=== PATIENT | female | born 1985 | race Caucasian/White ===

== ENCOUNTER 2020-10-23 01:33 | Emergency (ER) | payer OTHER ==
[~2020-10-23] VITALS: Ht 162.6 cm; Wt 72.6 kg
[2020-10-23 01:37] VITALS: BP 102/68
[2020-10-23] MEDS ORDERED: CIPR2.5D14 RIGHTEYE (02:12)
[2020-10-23] MEDS ORDERED: CIPROFLOXACIN HCL 0.3% 5 ML BOTTLE RIGHTEYE SCH (02:30)
== END 2020-10-23 03:35 | disposition home or self-care (01) ==
LOC: ER 01:33
DX: S05.01XA Injury of conjunctiva and corneal abrasion without foreign body, right eye, initial encounter (principal); H11.31 Conjunctival hemorrhage, right eye; J45.909 Unspecified asthma, uncomplicated; Z79.899 Other long term (current) drug therapy; W55.03XA Scratched by cat, initial encounter; Y93.89 Activity, other specified; Y92.89 Other specified places as the place of occurrence of the external cause; Y99.8 Other external cause status